=== PATIENT | female | born 1990 | race Caucasian/White ===

== ENCOUNTER 2017-08-20 18:55 | Emergency (ER) | payer MEDICAID | END 2017-08-20 20:42 | disposition home or self-care (01) | LOC: D.ER 18:55 | DX: S16.1XXA Strain of muscle, fascia and tendon at neck level, initial encounter (principal); V43.52XA Car driver injured in collision with other type car in traffic accident, initial encounter; Y93.89 Activity, other specified; Y92.410 Unspecified street and highway as the place of occurrence of the external cause; F90.9 Attention-deficit hyperactivity disorder, unspecified type ==

== ENCOUNTER → 2018-07-27 08:36 | Outpatient (CLI) | payer MEDICAID | END | disposition home or self-care (01) | LOC: D.US 08:30 | DX: N64.9 Disorder of breast, unspecified (principal) ==